=== PATIENT | male | born 1955 | race Caucasian/White ===

== ENCOUNTER 2017-04-19 22:02 | Emergency (ER) | payer MEDICAID ==
[~2017-04-19] VITALS: Ht 175.3 cm; Wt 86.2 kg
[2017-04-19 22:09] VITALS: BP_SYST 149
[2017-04-19] MEDS ORDERED: BACITRACIN 1 GM OINT TP ONE (23:15)
[2017-04-19 23:27] VITALS: BP_SYST 139
== END 2017-04-19 23:27 | disposition home or self-care (01) ==
LOC: SED 22:02
DX: T23.172A Burn of first degree of left wrist, initial encounter (principal); E11.9 Type 2 diabetes mellitus without complications; I10 Essential (primary) hypertension; X08.8XXA Exposure to other specified smoke, fire and flames, initial encounter; Y93.89 Activity, other specified; Y92.89 Other specified places as the place of occurrence of the external cause; Y99.8 Other external cause status
CPT/HCPCS: 99284